=== PATIENT | male | born 2000 | race African-American/Black ===

== ENCOUNTER 2021-08-05 13:30 | Emergency (ER) | payer SELFPAY ==
[~2021-08-05] VITALS: Ht 175.3 cm; Wt 120.5 kg
[2021-08-05 13:56] VITALS: BP 143/74; PULSE 82; TEMP 98.1
== END 2021-08-05 16:56 | disposition left against medical advice (07) ==
LOC: COL.ER 13:30
DX: Z47.89 Encounter for other orthopedic aftercare (principal)

== ENCOUNTER 2021-08-07 11:22 | Emergency (ER) | payer SELFPAY ==
[~2021-08-07] VITALS: Ht 175.3 cm; Wt 120.5 kg
[2021-08-07 11:45] VITALS: BP 131/63; PULSE 88; TEMP 98.4
== END 2021-08-07 12:45 | disposition home or self-care (01) ==
LOC: COL.ER 11:22
DX: S89.91XA Unspecified injury of right lower leg, initial encounter (principal); J45.909 Unspecified asthma, uncomplicated; F17.210 Nicotine dependence, cigarettes, uncomplicated; X50.9XXA Other and unspecified overexertion or strenuous movements or postures, initial encounter

== ENCOUNTER 2022-11-19 14:32 | Emergency (ER) | payer SELFPAY ==
[~2022-11-19] VITALS: Ht 175.3 cm; Wt 136.4 kg
[2022-11-19 14:37] VITALS: TEMP 98.5
[2022-11-19 15:13] LABS: STREP SCREEN NEGATIVE
[2022-11-19 15:43] VITALS: BP 130/69; PULSE 83
== END 2022-11-19 15:43 | disposition home or self-care (01) ==
LOC: COL.ER 14:32
PROVIDERS: Physician Assistant
DX: J02.9 Acute pharyngitis, unspecified (principal); F17.290 Nicotine dependence, other tobacco product, uncomplicated; Z28.310 Unvaccinated for COVID-19; Z20.822 Contact with and (suspected) exposure to COVID-19